=== PATIENT | female | born 1975 | race Two or more races ===

== ENCOUNTER 2018-01-04 14:49 | Outpatient (CLI) | payer OTHER ==
[~2018-01-04 14:49] MED LIST: BENADRYL50 MG PO; CATAFLAM50 MG PO; DECADRON P4 MG/ML-1M IH; FLEXERIL10 MG PO; MAXITROL EYE O3.5 GM OP; MEDROL DOSE PACK PO; MEDROL4 MG PO; POLY119PG; TORADOL60 MG IM; ZOVIRAX5 GM TP; ZYRTEC10 M3 PO; ZYRTEC10 MG PO
== END 2018-01-04 14:56 | disposition home or self-care (01) ==
LOC: MAMO-SONO 14:49
DX: Z12.31 Encounter for screening mammogram for malignant neoplasm of breast (principal)

== ENCOUNTER → 2018-01-14 07:43 | Outpatient (CLI) | payer OTHER | END | disposition home or self-care (01) | LOC: LAB 07:43 | DX: D68.9 Coagulation defect, unspecified (principal); D50.9 Iron deficiency anemia, unspecified; E83.51 Hypocalcemia; E78.00 Pure hypercholesterolemia, unspecified; E03.9 Hypothyroidism, unspecified; N39.0 Urinary tract infection, site not specified ==

== ENCOUNTER 2018-02-15 09:55 | Outpatient (CLI) | payer OTHER | END 2018-02-15 10:06 | disposition home or self-care (01) | LOC: LAB 09:55 | DX: R50.9 Fever, unspecified (principal) ==

== ENCOUNTER → 2018-02-15 | Outpatient (CLI) | payer OTHER | END | disposition home or self-care (01) | LOC: PPHC 08:45 | DX: B34.9 Viral infection, unspecified (principal) ==

== ENCOUNTER 2018-04-12 08:22 | Outpatient (CLI) | payer OTHER | END 2018-04-12 08:35 | disposition home or self-care (01) | LOC: EKG 08:22 → LAB 08:22 → EKG 08:35 | DX: R07.89 Other chest pain (principal) ==

== ENCOUNTER → 2018-09-07 07:24 | Outpatient (CLI) | payer OTHER | END | disposition home or self-care (01) | LOC: LAB 07:24 | DX: I10 Essential (primary) hypertension (principal); Z13.1 Encounter for screening for diabetes mellitus; Z12.11 Encounter for screening for malignant neoplasm of colon ==

== ENCOUNTER 2018-09-10 07:28 | Outpatient (CLI) | payer OTHER | END 2018-09-10 18:30 | disposition home or self-care (01) | LOC: LAB 07:28 | DX: N39.0 Urinary tract infection, site not specified (principal) ==

== ENCOUNTER 2019-05-12 10:22 | Emergency (ER) | payer OTHER ==
[~2019-05-12] VITALS: Ht 175.3 cm; Wt 86.2 kg
[2019-05-12] MEDS ORDERED: LISINOPRIL2.5 MG (10:32)
[2019-05-12] MEDS ORDERED: HYDROCHLOROTH12.5 M1 (10:32)
[2019-05-12] MEDS ORDERED: NAPROXEN500 MG PO (13:12)
== END 2019-05-12 13:27 | disposition home or self-care (01) ==
LOC: ER 10:22
DX: M65.872 Other synovitis and tenosynovitis, left ankle and foot (principal)

== ENCOUNTER 2019-10-20 07:08 | Emergency (ER) | payer OTHER ==
[~2019-10-20] VITALS: Ht 175.3 cm; Wt 87.1 kg
[~2019-10-20 07:08] MED LIST changes: +HYDROCHLOROTH12.5 M1; +LISINOPRIL2.5 MG; +NAPROXEN500 MG PO
[2019-10-20] MEDS ORDERED: NORFLEX100MG PO (08:46)
[2019-10-20] MEDS ORDERED: TUSNEL LIQUID178 ML PO (08:46)
[2019-10-20] MEDS ORDERED: DICLOFENAC SODI75 MG PO (08:46)
== END 2019-10-20 09:48 | disposition home or self-care (01) ==
LOC: ER 07:08
DX: M62.838 Other muscle spasm (principal)

== ENCOUNTER → 2020-12-19 | Outpatient (CLI) | payer OTHER ==
[~2020-12-19] MED LIST changes: +DICLOFENAC SODI75 MG PO; +NORFLEX100MG PO; +TUSNEL LIQUID178 ML PO
== END | disposition home or self-care (01) ==
LOC: MAMO-SONO 12:41
PROVIDERS: ATTEND Specialist
DX: N92.1 Excessive and frequent menstruation with irregular cycle (principal); N63.0 Unspecified lump in unspecified breast; Z12.31 Encounter for screening mammogram for malignant neoplasm of breast

== ENCOUNTER 2021-03-14 08:00 | Outpatient (CLI) | payer OTHER | END 2021-03-14 08:30 | disposition home or self-care (01) | LOC: PPH VACUNA 08:00 | DX: Z23 Encounter for immunization (principal) ==

== ENCOUNTER 2021-11-11 08:00 | Outpatient (CLI) | payer OTHER | END 2021-11-11 08:30 | disposition home or self-care (01) | LOC: PPH VACUNA 08:00 | PROVIDERS: ATTEND Emergency Medicine Pediatric Emergency Medicine | DX: Z23 Encounter for immunization (principal) ==

== ENCOUNTER 2022-01-31 07:29 | Emergency (ER) | payer OTHER ==
[~2022-01-31] VITALS: Ht 177.8 cm; Wt 86.2 kg
[2022-01-31] MEDS ORDERED: HYDROCHLOROTH12.5 MG PO (07:35)
[2022-01-31] MEDS ORDERED: ZESTRIL5 MG PO (07:35)
== END 2022-01-31 10:08 | disposition home or self-care (01) ==
LOC: ER 07:29
DX: B34.9 Viral infection, unspecified (principal); Z20.822 Contact with and (suspected) exposure to COVID-19; Z88.6 Allergy status to analgesic agent

== ENCOUNTER 2022-04-16 08:11 | Emergency (ER) | payer OTHER ==
[~2022-04-16] VITALS: Ht 177.8 cm; Wt 89.4 kg
[~2022-04-16 08:11] MED LIST changes: +HYDROCHLOROTH12.5 MG PO; +ZESTRIL5 MG PO
== END 2022-04-16 13:18 | disposition home or self-care (01) ==
LOC: ER 08:11
DX: J32.9 Chronic sinusitis, unspecified (principal); I10 Essential (primary) hypertension; Z88.6 Allergy status to analgesic agent

== ENCOUNTER 2022-04-16 12:37 | Outpatient (CLI) | payer OTHER | END 2022-04-16 15:04 | disposition home or self-care (01) | LOC: LAB 12:37 | PROVIDERS: ATTEND General Practice | DX: J09.X2 Influenza due to identified novel influenza A virus with other respiratory manifestations (principal); Z20.822 Contact with and (suspected) exposure to COVID-19 ==

== ENCOUNTER 2022-04-17 08:56 | Outpatient (CLI) | payer OTHER | END 2022-04-17 10:15 | disposition home or self-care (01) | LOC: ASH CLINIC 08:56 | PROVIDERS: ATTEND Emergency Medicine | DX: U07.1 COVID-19 (principal) ==

== ENCOUNTER 2022-06-30 08:43 | Emergency (ER) | payer OTHER ==
[~2022-06-30] VITALS: Ht 177.8 cm; Wt 88.5 kg
[2022-06-30] MEDS ORDERED: ZITHROMAX200 MG PO (10:43)
== END 2022-06-30 11:24 | disposition home or self-care (01) ==
LOC: ER 08:43
DX: J02.9 Acute pharyngitis, unspecified (principal); I10 Essential (primary) hypertension; J32.9 Chronic sinusitis, unspecified; A49.3 Mycoplasma infection, unspecified site; Z88.6 Allergy status to analgesic agent; Z20.822 Contact with and (suspected) exposure to COVID-19

== ENCOUNTER 2022-07-31 09:39 | Outpatient (CLI) | payer OTHER ==
[~2022-07-31 09:39] MED LIST changes: +ZITHROMAX200 MG PO
== END 2022-07-31 10:02 | disposition home or self-care (01) ==
LOC: TOM 09:39
PROVIDERS: ATTEND Internal Medicine Pulmonary Disease
DX: U09.9 Post COVID-19 condition, unspecified (principal); R06.02 Shortness of breath; J31.0 Chronic rhinitis

== ENCOUNTER 2022-08-05 07:06 | Outpatient (CLI) | payer OTHER | END 2022-08-05 07:07 | disposition home or self-care (01) | LOC: LAB 07:06 | PROVIDERS: ATTEND Internal Medicine Pulmonary Disease | DX: U09.9 Post COVID-19 condition, unspecified (principal); R06.02 Shortness of breath ==

== ENCOUNTER 2022-08-17 18:57 | Emergency (ER) | payer OTHER ==
[~2022-08-17] VITALS: Ht 175.3 cm; Wt 87.1 kg
== END 2022-08-17 22:15 | disposition home or self-care (01) ==
LOC: ER 18:57
DX: A49.3 Mycoplasma infection, unspecified site (principal)

== ENCOUNTER 2023-06-30 13:33 | Outpatient (CLI) | payer OTHER | END 2023-06-30 13:41 | disposition home or self-care (01) | LOC: MAMO-SONO 13:33 | PROVIDERS: ATTEND General Practice | DX: N64.4 Mastodynia (principal); Z12.31 Encounter for screening mammogram for malignant neoplasm of breast ==

== ENCOUNTER 2023-12-02 08:47 | Outpatient (CLI) | payer OTHER | END 2023-12-02 08:52 | disposition home or self-care (01) | LOC: RAD 08:47 | PROVIDERS: ATTEND Internal Medicine Pulmonary Disease | DX: J30.1 Allergic rhinitis due to pollen (principal); J45.31 Mild persistent asthma with (acute) exacerbation ==

== ENCOUNTER 2024-05-15 12:09 | Emergency (ER) | payer OTHER ==
[~2024-05-15] VITALS: Ht 175.3 cm; Wt 89.8 kg
[2024-05-15] MEDS ORDERED: HYDROCHLOROTH12.5 M2 PO (12:53)
[2024-05-15] MEDS ORDERED: PROTONIX40 MG PO (12:54)
== END 2024-05-15 19:33 | disposition left against medical advice (07) ==
LOC: ER 12:11
DX: Z53.21 Procedure and treatment not carried out due to patient leaving prior to being seen by health care provider (principal)

== ENCOUNTER 2025-06-06 12:47 | Emergency (ER) | payer OTHER ==
[~2025-06-06] VITALS: Ht 175.3 cm; Wt 75.7 kg
[~2025-06-06 12:47] MED LIST changes: +HYDROCHLOROTH12.5 M2 PO; +PROTONIX40 MG PO
[2025-06-06] MEDS ORDERED: METHYLPREDNISOLONE SOD SUCC 125 MG VIAL IV ONE (13:15)
[2025-06-06] MEDS ORDERED: EPINEPHRINE HCL/PF 1 MG/ML AMPUL SUBCUTANEO ONE (13:15)
[2025-06-06] MEDS ORDERED: DIPHENHYDRAMINE HCL 50 MG/ML VIAL 1ML IV ONE (13:15)
[2025-06-06] MEDS ORDERED: DIPHENHYDRAMINE HCL 50 MG/ML VIAL 1ML ONE (13:38)
[2025-06-06] MEDS ORDERED: EPINEPHRINE HCL/PF 1 MG/ML AMPUL ONE (13:38)
[2025-06-06] MEDS ORDERED: METHYLPREDNISOLONE SOD SUCC 125 MG VIAL ONE (13:39)
[2025-06-06] MEDS ORDERED: MEDROLPACK PO (15:04)
[2025-06-06] MEDS ORDERED: BENADRYL ALLERG25 MG PO (15:04)
== END 2025-06-06 16:16 | disposition home or self-care (01) ==
LOC: ER 12:47
DX: R21 Rash and other nonspecific skin eruption (principal); T78.40XA Allergy, unspecified, initial encounter; I10 Essential (primary) hypertension; Z88.6 Allergy status to analgesic agent

== ENCOUNTER 2025-10-04 10:10 | Outpatient (CLI) | payer OTHER ==
[~2025-10-04 10:10] MED LIST changes: +BENADRYL ALLERG25 MG PO; +MEDROLPACK PO
== END 2025-10-04 10:11 | disposition home or self-care (01) ==
LOC: TOM 10:10
DX: H02.531 Eyelid retraction right upper eyelid (principal)